=== PATIENT | male | born 1955 | race Caucasian/White ===

== ENCOUNTER 2017-05-07 14:51 | Inpatient (IN) | payer BC ==
[~2017-05-07] VITALS: Ht 170.2 cm; Wt 171.5 kg
[~2017-05-07 14:51] MED LIST: FUROPOW8 XX; HYDR-1421 PO; KCL PO; LOSA100T27 PO; SIMVPOW2 PO; TRIA25CA OR
[2017-05-07 16:54] LABS: Alanine Aminotransferase 19 U/L (16-61); Albumin 3.7 g/dL (3.4-5.0); Alkaline Phosphatase 73 U/L (45-117); Anion Gap 5 (5-15); Aspartate Aminotransferase 14 U/L (15-37); Bilirubin, Total 0.4 mg/dL (0.2-1.0); Blood Urea Nitrogen 13 mg/dL (7-18); Calcium 8.6 mg/dL (8.5-10.1); Carbon Dioxide 28 mmol/L (21-32); Chloride 104 mmol/L (98-107); GFR African American 125 mL/min; GFR Non-African American 103 mL/min; Glucose 100 mg/dL (74-106); Magnesium 2.5 mg/dL (1.6-2.6); Potassium 4.2 mmol/L (3.5-5.1); Sodium 137 mmol/L (136-145); Total Protein 7.5 g/dL (6.4-8.2)
[2017-05-07 16:59] LABS: Basophils # (auto) 0 uL; Basophils % (auto) 0.5 % (0.0-2.0); Eosinophils # (auto) 0.2 uL; Eosinophils % (auto) 1.9 % (0.0-7.0); Hemoglobin 12.3 g/dL (13.5-17.5); Lymphocytes # (auto) 2.1 uL; Lymphocytes % (auto) 26.6 % (10.0-50.0); Mean Corpuscular Hemoglobin 31.3 pg (28.0-32.0); Mean Corpuscular Hgb Conc. 33.3 g/dL (32.0-36.0); Mean Corpuscular Volume 94.2 fL (80.0-100.0); Monocytes # (auto) 0.7 uL; Monocytes % (auto) 8.7 % (0.0-12.0); Neutrophils # (auto) 4.9 uL; Neutrophils % (auto) 62.3 % (37.0-80.0); Nucleated Red Blood Cells % 0.1 %; Platelet Count (auto) 219 10^3/uL (140-450); Red Blood Cells 3.93 10^6/uL (4.5-5.90); Red Cell Distribution Width 13.4 % (11.8-14.3); White Blood Cell 7.9 10^3/uL (4.4-10.8)
[2017-05-08] MEDS ORDERED: IOHEXOL 350 MG/ML 100ML IJ ONE (04:13)
[2017-05-08] MEDS ORDERED: HYDROcodone-ACET 10/325MG TAB PO ONE (04:15)
[2017-05-08] MEDS ORDERED: ASPirin 81 mg TAB PO ONE (05:15)
[2017-05-08] MEDS ORDERED: AGG25C PO (05:43)
[2017-05-08] MEDS ORDERED: HYDR-4683 PO (05:43)
[2017-05-08] MEDS ORDERED: AMLO5TAB2 PO (05:43)
[2017-05-08] MEDS ORDERED: TAMS0.4C36 PO (05:50)
[2017-05-08] MEDS ORDERED: FURO40TA4 PO (05:50)
[2017-05-08] MEDS ORDERED: METO-169 PO (05:50)
[2017-05-08] MEDS ORDERED: LOSA100T27 PO (05:50)
[2017-05-08] MEDS ORDERED: DICL1GEL26 TD (05:50)
[2017-05-08] MEDS ORDERED: FLUT250M2 INH (05:50)
[2017-05-08] MEDS ORDERED: RANI300C7 PO (05:50)
[2017-05-08] MEDS ORDERED: ATOR20TA50 PO (05:50)
[2017-05-08] MEDS ORDERED: HYDR12.56 PO (05:50)
[2017-05-08] MEDS ORDERED: POTA10TA51 PO (05:50)
[2017-05-08] MEDS ORDERED: TEMAZEPAM 15 MG CAP PO PRN (06:15)
[2017-05-08] MEDS ORDERED: ACETAMINOPHEN 325 MG TAB PO PRN (06:15)
[2017-05-08] MEDS ORDERED: ONDANSETRON HCL 4 MG/2 ML VIAL IV PRN (06:15)
[2017-05-08] MEDS ORDERED: MORPHINE SULFATE 4 MG/ML SYR/VIAL IV PRN (06:15)
[2017-05-08] MEDS ORDERED: NITROGLYCERIN 0.4 MG SL TAB SL PRN (06:15)
[2017-05-08] MEDS ORDERED: ALBUTEROL SULF 2.5 MG/0.5ML(0.5%) NEB SOLN NEB PRN (06:15)
[2017-05-08 08:00] VITALS: BP 121/57
[2017-05-08] MEDS: FAMOTIDINE 20 MG TAB PO SCH ×2 (09:13→22:11)
[2017-05-08] MEDS: LOSARTAN POTASSIUM 50 MG TAB PO SCH (09:16)
[2017-05-08] MEDS: amLODIPine BESYLATE 5 MG TAB PO SCH (09:21)
[2017-05-08] MEDS ORDERED: OPTISON 3ml Vial for INJ IV ONE (09:49)
[2017-05-08] MEDS ORDERED: ENOXAPARIN SOD 40 MG/0.4 ML SYRINGE SC SCH (10:00)
[2017-05-08] MEDS ORDERED: FUROSEMIDE 40 MG TAB PO SCH (10:00)
[2017-05-08] MEDS ORDERED: LOSARTAN POTASSIUM 25 MG TAB PO SCH (10:00)
[2017-05-08] MEDS ORDERED: HCTZ 25 MG TAB PO SCH (10:00)
[2017-05-08] MEDS ORDERED: POTASSIUM CHL 20 Meq TABLET PO ONE ×2 (11:15→17:00)
[2017-05-08] MEDS ORDERED: FUROSEMIDE 40 MG/4 ML VIAL IV ONE (11:15)
[2017-05-08] MEDS ORDERED: ASPIRIN-DIPYRIDAMOLE (25/200MG) CAPSULE PO ONE (11:45)
[2017-05-08 12:00] VITALS: BP 144/73
[2017-05-08] MEDS: HYDROcodone-ACET 5/325MG TAB PO PRN ×2 (12:07→21:13)
[2017-05-08 16:52] VITALS: BP 132/61
[2017-05-08] MEDS: TAMSULOSIN HYDROCHLORIDE 0.4 MG CAP PO SCH (17:14)
[2017-05-08 19:12] LABS: Urine Bacteria NONE SEEN /hpf (None Seen); Urine Blood Negative /uL (Negative); Urine Specific Gravity 1.011 (1.001-1.035); Urine WBC <1 /hpf (0 - 3)
[2017-05-08 21:46] VITALS: BP 122/55
[2017-05-08] MEDS: ASPIRIN-DIPYRIDAMOLE (25/200MG) CAPSULE PO SCH (22:11)
[2017-05-08] MEDS: ATORVASTATIN 20 MG TAB PO SCH (22:11)
[2017-05-09] MEDS: HYDROcodone-ACET 5/325MG TAB PO PRN ×5 (04:19→23:50)
[2017-05-09 04:57] VITALS: BP 145/97
[2017-05-09 07:25] LABS: Basophils # (auto) 0 uL; Basophils % (auto) 0.4 % (0.0-2.0); Eosinophils # (auto) 0.1 uL; Eosinophils % (auto) 1.2 % (0.0-7.0); Hematocrit 36.5 % (41.0-53.0); Hemoglobin 12.4 g/dL (13.5-17.5); Lymphocytes % (auto) 21.6 % (10.0-50.0); Mean Corpuscular Hgb Conc. 34.1 g/dL (32.0-36.0); Mean Corpuscular Volume 93.8 fL (80.0-100.0); Monocytes % (auto) 11.1 % (0.0-12.0); Neutrophils # (auto) 6.2 uL; Neutrophils % (auto) 65.7 % (37.0-80.0); Platelet Count (auto) 216 10^3/uL (140-450); Red Blood Cells 3.89 10^6/uL (4.5-5.90); White Blood Cell 9.4 10^3/uL (4.4-10.8)
[2017-05-09 07:46] LABS: Albumin 3.6 g/dL (3.4-5.0); Bilirubin, Total 0.5 mg/dL (0.2-1.0); Calcium 8.9 mg/dL (8.5-10.1); Potassium 4.3 mmol/L (3.5-5.1); Total Protein 7.1 g/dL (6.4-8.2)
[2017-05-09 09:00] VITALS: BP 122/63
[2017-05-09] MEDS: FUROSEMIDE 40 MG/4 ML VIAL IV SCH (09:25)
[2017-05-09] MEDS: ASPIRIN-DIPYRIDAMOLE (25/200MG) CAPSULE PO SCH ×2 (09:25→21:35)
[2017-05-09] MEDS: FAMOTIDINE 20 MG TAB PO SCH ×2 (09:26→21:36)
[2017-05-09] MEDS: LOSARTAN POTASSIUM 50 MG TAB PO SCH (09:26)
[2017-05-09] MEDS: amLODIPine BESYLATE 5 MG TAB PO SCH (09:26)
[2017-05-09] MEDS: POTASSIUM CHL 20 Meq TABLET PO SCH (09:26)
[2017-05-09 13:00] VITALS: BP 91/38
[2017-05-09] MEDS ORDERED: POTASSIUM CHL 20 Meq TABLET PO ONE ×2 (14:25→14:30)
[2017-05-09 16:32] VITALS: BP 106/58
[2017-05-09] MEDS: TAMSULOSIN HYDROCHLORIDE 0.4 MG CAP PO SCH (17:35)
[2017-05-09] MEDS: ATORVASTATIN 20 MG TAB PO SCH (21:35)
[2017-05-09 22:00] VITALS: BP 127/62
[2017-05-10 05:00] VITALS: BP 119/67
[2017-05-10] MEDS: HYDROcodone-ACET 5/325MG TAB PO PRN ×2 (07:48→13:23)
[2017-05-10 09:00] VITALS: BP 124/64
[2017-05-10] MEDS: LOSARTAN POTASSIUM 50 MG TAB PO SCH (10:02)
[2017-05-10] MEDS: FAMOTIDINE 20 MG TAB PO SCH (10:02)
[2017-05-10] MEDS: FUROSEMIDE 40 MG/4 ML VIAL IV SCH (10:02)
[2017-05-10] MEDS: POTASSIUM CHL 20 Meq TABLET PO SCH (10:02)
[2017-05-10] MEDS: ASPIRIN-DIPYRIDAMOLE (25/200MG) CAPSULE PO SCH (10:37)
[2017-05-10 12:27] VITALS: BP 111/55
== END 2017-05-10 15:22 | disposition home or self-care (01) | DRG 190 ==
LOC: ER 14:51 → TELE 14:52 → TELE-EAST 05-08 07:47 → EAST 05-10 00:21
PROVIDERS: ADMIT Nurse Practitioner; ATTEND Internal Medicine
DX: J44.1 Chronic obstructive pulmonary disease with (acute) exacerbation (principal); I50.33 Acute on chronic diastolic (congestive) heart failure; Z68.43 Body mass index [BMI] 50.0-59.9, adult; Z82.49 Family history of ischemic heart disease and other diseases of the circulatory system; E66.01 Morbid (severe) obesity due to excess calories; I11.0 Hypertensive heart disease with heart failure; R00.1 Bradycardia, unspecified; E78.5 Hyperlipidemia, unspecified; R79.1 Abnormal coagulation profile; G47.00 Insomnia, unspecified; Z83.3 Family history of diabetes mellitus; Z86.73 Personal history of transient ischemic attack (TIA), and cerebral infarction without residual deficits; Z98.84 Bariatric surgery status; Z90.49 Acquired absence of other specified parts of digestive tract; Z80.8 Family history of malignant neoplasm of other organs or systems; Z79.899 Other long term (current) drug therapy
CPT/HCPCS: 36415; 71046; 71275; 74176; 80053; 81001; 83735; 83880; 84484; 85025; 85379; 93005; 93306; 93970; 94640; Q9956

== ENCOUNTER 2023-03-16 23:38 | Inpatient (IN) | payer BC, MEDICARE ==
[~2023-03-16] VITALS: Ht 170.2 cm; Wt 139.8 kg
[~2023-03-16 23:38] MED LIST changes: +AGG25C PO; +AMLO1TAB22 PO; +ATOR20TA50 PO; +DICL1GEL26 TD; +FLUT250M2 INH; +FURO40TA4 PO; -FUROPOW8 XX; -HYDR-1421 PO; +HYDR-4833 PO; +HYDR12.59 PO; -KCL PO; -LOSA100T27 PO; +LOSA100T58 PO; +METO-289 PO; +POTA10TA51 PO; +RANI300C7 PO; -SIMVPOW2 PO; +TAMS0.4C36 PO; -TRIA25CA OR
[2023-03-17 00:52] LABS: Basophils # (auto) 0 10 ^3/uL (0-0.2); Basophils % (auto) 0.4 % (0.0-2.0); Eosinophils # (auto) 0 10 ^3/uL (0-0.8); Hematocrit 32.4 % (41.0-53.0); Hemoglobin 10.9 g/dL (13.5-17.5); Lymphocytes # (auto) 0.7 10 ^3/uL (0.4-5.4); Mean Corpuscular Hemoglobin 32.6 pg (28.0-32.0); Mean Corpuscular Hgb Conc. 33.8 g/dL (32.0-36.0); Mean Corpuscular Volume 96.7 fL (80.0-100.0); Monocytes # (auto) 0.5 10 ^3/uL (0-1.3); Monocytes % (auto) 10.8 % (0.0-12.0); Neutrophils # (auto) 3.3 10 ^3/uL (1.6-8.6); Neutrophils % (auto) 72.8 % (37.0-80.0); Red Blood Cells 3.35 10^6/uL (4.5-5.90); Red Cell Distribution Width 13.5 % (11.8-14.3); White Blood Cell 4.6 10^3/uL (4.4-10.8)
[2023-03-17 01:05] LABS: Chloride 106 mmol/L (98-107); Potassium 4.2 mmol/L (3.5-5.1); Sodium 138 mmol/L (136-145)
[2023-03-17 01:06] LABS: Anion Gap 6 (5-15); Calcium 8.8 mg/dL (8.7-10.4); Carbon Dioxide 26 mmol/L (20-30)
[2023-03-17 01:11] LABS: BUN/Creatinine Ratio 16.2 (10.0-20.0); Blood Urea Nitrogen 17 mg/dL (9-23); Glucose 110 mg/dL (74-106)
[2023-03-17 02:00] VITALS: PULSE 84; RESP 18; O2SAT 99
[2023-03-17] MEDS ORDERED: FUROSEMIDE 40 MG/4 ML VIAL IV ONE (02:00)
[2023-03-17] MEDS ORDERED: OXYCODONE W/ ACETAMINOPHEN 5/325MG TABLET PO ONE (02:15)
[2023-03-17 03:34] LABS: Urine Epithelial Cast None Seen /hpf (<5)
[2023-03-17 03:45] LABS: Urine Bacteria FEW /hpf (None Seen); Urine Blood Negative /uL (Negative); Urine Clarity Clear (Clear); Urine Color Colorless (Yellow); Urine Protein, UAD Negative (Negative); Urine Specific Gravity 1.006 (1.001-1.035); Urine Urobilinogen Normal (Negative); Urine WBC 1 /hpf (0 - 3)
[2023-03-17] MEDS ORDERED: ALBUTEROL SULF 2.5 MG/0.5ML(0.5%) NEB SOLN NEB ONE (08:30)
[2023-03-17] MEDS ORDERED: IPRATROPIUM BROM 0.5 MG/2.5ML INH SOL NEB ONE (08:30)
[2023-03-17 08:41] VITALS: O2SAT 98
[2023-03-17 08:42] VITALS: PULSE 93; RESP 16; O2SAT 98
[2023-03-17 08:44] VITALS: PULSE 106; RESP 18; O2SAT 98
[2023-03-17 09:00] VITALS: PULSE 84; RESP 18; O2SAT 94
[2023-03-17] MEDS ORDERED: PANTOPRAZOLE 40 MG TAB PO ONE (09:15)
[2023-03-17] MEDS: PANTOPRAZOLE 40 MG TAB PO SCH (10:00)
[2023-03-17] MEDS ORDERED: PATIENTS OWN MEDICATION (Losartan Potassium 100 MG) PO SCH (10:00)
[2023-03-17] MEDS: FUROSEMIDE 20 MG/2 ML VIAL IV SCH ×2 (10:17→22:47)
[2023-03-17] MEDS: amLODIPine BESYLATE 5 MG TAB PO SCH (10:18)
[2023-03-17] MEDS: ASPIRIN-DIPYRIDAMOLE (25/200MG) CAPSULE PO SCH (10:18)
[2023-03-17] MEDS: LOSARTAN POTASSIUM 50 MG TAB PO SCH (10:18)
[2023-03-17] MEDS: ATORVASTATIN 20 MG TAB PO SCH (10:18)
[2023-03-17] MEDS: TAMSULOSIN HYDROCHLORIDE 0.4 MG CAP PO SCH (10:19)
[2023-03-17] MEDS: METOPROLOL SUCCINATE XL 50 MG TAB PO SCH (10:19)
[2023-03-17] MEDS ORDERED: HYDROcodone-ACET 7.5/325MG TAB ONE (10:22)
[2023-03-17] MEDS: HYDROcodone-ACET 7.5/325MG TAB PO PRN (10:23)
[2023-03-17] MEDS ORDERED: OPTISON 3ml Vial for INJ IV ONE (10:45)
[2023-03-17 12:01] LABS: Rapid Influenza B Negative (Negative)
[2023-03-17 12:05] LABS: COVID19 ANTIGEN SOFIA FIA NEGATIVE (NEGATIVE); Rapid Influenza A Positive (Negative)
[2023-03-17 13:28] LABS: INR 1.11 (0.9-1.15); Prothrombin Time 11.6 sec (9.3-11.8)
[2023-03-17] MEDS: AMIODARONE HCL 200 MG TAB PO ONE ×2 (13:45→16:00)
[2023-03-17 16:58] LABS: Triglycerides 56 mg/dL (< 150)
[2023-03-17 16:59] LABS: LDL Cholesterol 54 mg/dL (< 100)
[2023-03-17 17:00] LABS: Cholesterol 155 mg/dL (< 200); HDL Cholesterol 77 mg/dL (40-59)
[2023-03-17] MEDS: AMIODARONE HCL 200 MG TAB PO SCH (22:47)
[2023-03-17] MEDS: OSELTAMIVIR 75 MG CAP PO SCH (22:47)
[2023-03-17] MEDS: ENOXAPARIN SOD 100 MG/1 ML SYRINGE SC SCH (22:56)
[2023-03-17 23:41] VITALS: PULSE 64; RESP 16; O2SAT 97
[2023-03-18] MEDS: HYDROcodone-ACET 7.5/325MG TAB PO PRN ×3 (00:44→19:37)
[2023-03-18 04:54] LABS: Basophils # (auto) 0 10 ^3/uL (0-0.2); Basophils % (auto) 0.3 % (0.0-2.0); Eosinophils # (auto) 0 10 ^3/uL (0-0.8); Eosinophils % (auto) 0.4 % (0.0-7.0); Hematocrit 32.1 % (41.0-53.0); Hemoglobin 10.7 g/dL (13.5-17.5); Lymphocytes # (auto) 1.2 10 ^3/uL (0.4-5.4); Lymphocytes % (auto) 18.8 % (10.0-50.0); Mean Corpuscular Hgb Conc. 33.3 g/dL (32.0-36.0); Monocytes # (auto) 0.7 10 ^3/uL (0-1.3); Monocytes % (auto) 10.1 % (0.0-12.0); Neutrophils # (auto) 4.6 10 ^3/uL (1.6-8.6); Neutrophils % (auto) 70.4 % (37.0-80.0); Nucleated Red Blood Cells % 0.1 %; Red Blood Cells 3.35 10^6/uL (4.5-5.90); Red Cell Distribution Width 13.6 % (11.8-14.3); White Blood Cell 6.5 10^3/uL (4.4-10.8)
[2023-03-18 05:01] LABS: Chloride 104 mmol/L (98-107); Potassium 3.6 mmol/L (3.5-5.1); Sodium 138 mmol/L (136-145)
[2023-03-18 05:02] LABS: Anion Gap 6 (5-15); Carbon Dioxide 28 mmol/L (20-30)
[2023-03-18 05:03] LABS: Calcium 8.9 mg/dL (8.7-10.4)
[2023-03-18 05:06] LABS: Alkaline Phosphatase 77 U/L (46-116)
[2023-03-18 05:07] LABS: BUN/Creatinine Ratio 19.2 (10.0-20.0); Blood Urea Nitrogen 15 mg/dL (9-23); Glucose 98 mg/dL (74-106)
[2023-03-18 05:09] LABS: Albumin 3.9 g/dL (3.2-4.8); Aspartate Aminotransferase 27 U/L (13-40)
[2023-03-18 05:10] LABS: Total Protein 6.7 g/dL (5.7-8.2)
[2023-03-18 05:46] LABS: Alanine Aminotransferase 25 U/L (7-40)
[2023-03-18 09:20] VITALS: RESP 22
[2023-03-18] MEDS: ENOXAPARIN SOD 100 MG/1 ML SYRINGE SC SCH (10:00)
[2023-03-18] MEDS ORDERED: ENOXAPARIN SOD 40 MG/0.4 ML SYRINGE SC SCH (10:00)
[2023-03-18] MEDS: ASPIRIN-DIPYRIDAMOLE (25/200MG) CAPSULE PO SCH (10:00)
[2023-03-18] MEDS: PANTOPRAZOLE 40 MG TAB PO SCH (10:00)
[2023-03-18] MEDS: FUROSEMIDE 20 MG/2 ML VIAL IV SCH ×2 (10:26→22:11)
[2023-03-18] MEDS: METOPROLOL SUCCINATE XL 50 MG TAB PO SCH (10:27)
[2023-03-18] MEDS: ATORVASTATIN 20 MG TAB PO SCH (10:27)
[2023-03-18] MEDS: amLODIPine BESYLATE 5 MG TAB PO SCH (10:28)
[2023-03-18] MEDS: AMIODARONE HCL 200 MG TAB PO SCH ×2 (10:28→22:12)
[2023-03-18] MEDS: LOSARTAN POTASSIUM 50 MG TAB PO SCH (10:28)
[2023-03-18] MEDS: OSELTAMIVIR 75 MG CAP PO SCH ×2 (10:29→22:12)
[2023-03-18] MEDS: TAMSULOSIN HYDROCHLORIDE 0.4 MG CAP PO SCH (10:29)
[2023-03-18] MEDS ORDERED: POTA-180 PO (11:19)
[2023-03-18] MEDS ORDERED: MELO-335 PO (11:23)
[2023-03-18] MEDS ORDERED: OXYC325T14 PO (11:23)
[2023-03-18] MEDS ORDERED: GABA-1250 PO (11:23)
[2023-03-18 23:46] VITALS: PULSE 98
[2023-03-19] VITALS (8 sets, daily range): BP systolic 116–131; BP diastolic 68–79; PULSE 61–88; RESP 18–21; TEMP 98–98.6; O2SAT 91–96
[2023-03-19] MEDS: HYDROcodone-ACET 7.5/325MG TAB PO PRN ×2 (00:02→20:21)
[2023-03-19 05:52] LABS: Basophils # (auto) 0 10 ^3/uL (0-0.2); Basophils % (auto) 0.2 % (0.0-2.0); Chloride 102 mmol/L (98-107); Eosinophils # (auto) 0 10 ^3/uL (0-0.8); Eosinophils % (auto) 0.8 % (0.0-7.0); Hematocrit 30.7 % (41.0-53.0); Hemoglobin 10.3 g/dL (13.5-17.5); Lymphocytes # (auto) 1.4 10 ^3/uL (0.4-5.4); Lymphocytes % (auto) 22.4 % (10.0-50.0); Mean Corpuscular Hemoglobin 32.2 pg (28.0-32.0); Mean Corpuscular Hgb Conc. 33.6 g/dL (32.0-36.0); Mean Corpuscular Volume 95.8 fL (80.0-100.0); Monocytes # (auto) 0.7 10 ^3/uL (0-1.3); Neutrophils % (auto) 65.6 % (37.0-80.0); Potassium 3.4 mmol/L (3.5-5.1); Red Cell Distribution Width 13.2 % (11.8-14.3); Sodium 138 mmol/L (136-145); White Blood Cell 6.1 10^3/uL (4.4-10.8)
[2023-03-19 05:53] LABS: Anion Gap 6 (5-15); Calcium 8.8 mg/dL (8.7-10.4); Carbon Dioxide 30 mmol/L (20-30)
[2023-03-19 05:58] LABS: BUN/Creatinine Ratio 18.6 (10.0-20.0); Blood Urea Nitrogen 16 mg/dL (9-23); Glucose 95 mg/dL (74-106)
[2023-03-19 05:59] LABS: Magnesium 1.7 mg/dL (1.6-2.6)
[2023-03-19] MEDS: amLODIPine BESYLATE 5 MG TAB PO SCH (08:41)
[2023-03-19] MEDS: LOSARTAN POTASSIUM 50 MG TAB PO SCH (08:41)
[2023-03-19] MEDS: OSELTAMIVIR 75 MG CAP PO SCH ×2 (08:41→21:58)
[2023-03-19] MEDS: TAMSULOSIN HYDROCHLORIDE 0.4 MG CAP PO SCH (08:42)
[2023-03-19] MEDS: PANTOPRAZOLE 40 MG TAB PO SCH (08:42)
[2023-03-19] MEDS: AMIODARONE HCL 200 MG TAB PO SCH ×2 (08:42→21:58)
[2023-03-19] MEDS: ATORVASTATIN 20 MG TAB PO SCH (08:42)
[2023-03-19] MEDS: METOPROLOL SUCCINATE XL 50 MG TAB PO SCH (08:43)
[2023-03-19] MEDS: FUROSEMIDE 20 MG/2 ML VIAL IV SCH ×2 (08:43→22:03)
[2023-03-19] MEDS: ASPIRIN-DIPYRIDAMOLE (25/200MG) CAPSULE PO SCH (09:14)
[2023-03-19] MEDS ORDERED: INFLUENZA QUAD 2023-2024 0.5 ML SYRG IM ONE (10:00)
[2023-03-19] MEDS ORDERED: POTASSIUM EFFERVESENT TAB 25 MEQ PO ONE (12:00)
[2023-03-19] MEDS: DOXYCYCLINE 100 MG TAB/CAP PO SCH ×2 (13:01→21:58)
[2023-03-19] MEDS: SALINE 0.65 % NASAL SPRAY 45ML BOTTLE EACHNOSTRI SCH ×3 (13:01→21:57)
[2023-03-19] MEDS: APIXABAN 5 MG TAB PO SCH (21:58)
[2023-03-20] MEDS: HYDROcodone-ACET 7.5/325MG TAB PO PRN (03:37)
[2023-03-20 05:00] VITALS: BP 136/76; PULSE 80; RESP 20; TEMP 98; O2SAT 94
[2023-03-20 05:33] LABS: Basophils # (auto) 0 10 ^3/uL (0-0.2); Basophils % (auto) 0.2 % (0.0-2.0); Eosinophils # (auto) 0.1 10 ^3/uL (0-0.8); Eosinophils % (auto) 0.8 % (0.0-7.0); Hematocrit 36.4 % (41.0-53.0); Hemoglobin 12.4 g/dL (13.5-17.5); Lymphocytes # (auto) 1.7 10 ^3/uL (0.4-5.4); Lymphocytes % (auto) 25.8 % (10.0-50.0); Mean Corpuscular Hemoglobin 32.3 pg (28.0-32.0); Monocytes # (auto) 0.6 10 ^3/uL (0-1.3); Monocytes % (auto) 8.7 % (0.0-12.0); Neutrophils # (auto) 4.3 10 ^3/uL (1.6-8.6); Neutrophils % (auto) 64.5 % (37.0-80.0); Nucleated Red Blood Cells % 0.1 %; Red Blood Cells 3.83 10^6/uL (4.5-5.90); Red Cell Distribution Width 13.2 % (11.8-14.3); White Blood Cell 6.7 10^3/uL (4.4-10.8)
[2023-03-20] MEDS: SALINE 0.65 % NASAL SPRAY 45ML BOTTLE EACHNOSTRI SCH ×2 (05:35→12:00)
[2023-03-20 05:36] LABS: Chloride 102 mmol/L (98-107); Potassium 4.3 mmol/L (3.5-5.1); Sodium 138 mmol/L (136-145)
[2023-03-20 05:37] LABS: Anion Gap 6 (5-15); Carbon Dioxide 30 mmol/L (20-30)
[2023-03-20 05:42] LABS: BUN/Creatinine Ratio 19.8 (10.0-20.0); Blood Urea Nitrogen 19 mg/dL (9-23); Glucose 101 mg/dL (74-106)
[2023-03-20 08:00] VITALS: PULSE 58; PULSE 61; RESP 21; O2SAT 94
[2023-03-20 09:00] VITALS: BP 137/69; PULSE 61; RESP 21; TEMP 98; O2SAT 94
[2023-03-20] MEDS: TAMSULOSIN HYDROCHLORIDE 0.4 MG CAP PO SCH (10:26)
[2023-03-20] MEDS: FUROSEMIDE 20 MG/2 ML VIAL IV SCH (10:26)
[2023-03-20] MEDS: ATORVASTATIN 20 MG TAB PO SCH (10:27)
[2023-03-20] MEDS: AMIODARONE HCL 200 MG TAB PO SCH (10:27)
[2023-03-20] MEDS: OSELTAMIVIR 75 MG CAP PO SCH (10:27)
[2023-03-20] MEDS: DOXYCYCLINE 100 MG TAB/CAP PO SCH (10:27)
[2023-03-20] MEDS: METOPROLOL SUCCINATE XL 50 MG TAB PO SCH (10:27)
[2023-03-20] MEDS: APIXABAN 5 MG TAB PO SCH (10:27)
[2023-03-20] MEDS: PANTOPRAZOLE 40 MG TAB PO SCH (10:27)
[2023-03-20] MEDS: LOSARTAN POTASSIUM 50 MG TAB PO SCH (10:28)
[2023-03-20] MEDS: amLODIPine BESYLATE 5 MG TAB PO SCH (10:28)
[2023-03-20] MEDS ORDERED: APIX5TAB PO (11:46)
[2023-03-20] MEDS ORDERED: TAMIFLU PO (11:46)
[2023-03-20 13:00] VITALS: BP 130/83; PULSE 73; RESP 19; TEMP 98.1; O2SAT 93
[2023-03-20 13:40] VITALS: BP 137/69; PULSE 61; RESP 21; TEMP 36.7; O2SAT 94
== END 2023-03-20 15:15 | disposition home or self-care (01) | DRG 193 ==
LOC: ER 23:38 → TELE 03-17 09:18 → TELE-EAST 03-18 23:25
PROVIDERS: ADMIT Nurse Practitioner Family; ATTEND Nurse Practitioner Acute Care
DX: J10.1 Influenza due to other identified influenza virus with other respiratory manifestations (principal); I50.43 Acute on chronic combined systolic (congestive) and diastolic (congestive) heart failure; J96.01 Acute respiratory failure with hypoxia; Z68.42 Body mass index [BMI] 45.0-49.9, adult; I11.0 Hypertensive heart disease with heart failure; D64.9 Anemia, unspecified; E66.01 Morbid (severe) obesity due to excess calories; E78.5 Hyperlipidemia, unspecified; Z20.822 Contact with and (suspected) exposure to COVID-19; I48.91 Unspecified atrial fibrillation; Z98.84 Bariatric surgery status; Z86.73 Personal history of transient ischemic attack (TIA), and cerebral infarction without residual deficits; Z90.49 Acquired absence of other specified parts of digestive tract; Z74.01 Bed confinement status; Z82.49 Family history of ischemic heart disease and other diseases of the circulatory system; Z83.3 Family history of diabetes mellitus; Z79.01 Long term (current) use of anticoagulants; Z91.148 Patient's other noncompliance with medication regimen for other reason; Z79.899 Other long term (current) drug therapy
CPT/HCPCS: 36415; 71045; 80048; 80053; 80061; 81001; 83036; 83735; 83880; 84443; 84484; 85025; 85610; 87426; 87804; 93005; 93306; 93970; 94640; 99291; G0378; Q9956

== ENCOUNTER 2023-09-21 14:54 | Inpatient (IN) | payer MEDICARE ==
[~2023-09-21] VITALS: Ht 167.6 cm; Wt 128.0 kg
[~2023-09-21 14:54] MED LIST changes: -AGG25C PO; +APIX5TAB PO; -DICL1GEL26 TD; -FLUT250M2 INH; +GABA-1250 PO; -HYDR-4833 PO; +LOSA-535 PO; -LOSA100T58 PO; +MELO15TA29 PO; +OXYC325T14 PO; +POTA-180 PO; -POTA10TA51 PO; -RANI300C7 PO; +TAMIFLU PO
[2023-09-21 15:46] LABS: Basophils # (auto) 0.1 10 ^3/uL (0-0.2); Basophils % (auto) 0.6 % (0.0-2.0); Eosinophils # (auto) 0 10 ^3/uL (0-0.8); Eosinophils % (auto) 0.1 % (0.0-7.0); Hematocrit 33.6 % (41.0-53.0); Hemoglobin 11.4 g/dL (13.5-17.5); Lymphocytes # (auto) 1.1 10 ^3/uL (0.4-5.4); Mean Corpuscular Hemoglobin 32.5 pg (28.0-32.0); Mean Corpuscular Hgb Conc. 33.9 g/dL (32.0-36.0); Mean Corpuscular Volume 95.6 fL (80.0-100.0); Monocytes # (auto) 1.1 10 ^3/uL (0-1.3); Monocytes % (auto) 7.5 % (0.0-12.0); Neutrophils # (auto) 12.8 10 ^3/uL (1.6-8.6); Neutrophils % (auto) 84.8 % (37.0-80.0); Red Blood Cells 3.52 10^6/uL (4.5-5.90); Red Cell Distribution Width 14.3 % (11.8-14.3); White Blood Cell 15.1 10^3/uL (4.4-10.8)
[2023-09-21 15:48] LABS: Chloride 104 mmol/L (98-107); Sodium 137 mmol/L (136-145)
[2023-09-21 15:49] LABS: Anion Gap 8 (5-15); Calcium 9.5 mg/dL (8.7-10.4); Carbon Dioxide 25 mmol/L (20-30)
[2023-09-21 15:54] LABS: Blood Urea Nitrogen 14 mg/dL (9-23); Glucose 110 mg/dL (74-106)
[2023-09-21 15:56] LABS: BUN/Creatinine Ratio 16.9 (10.0-20.0)
[2023-09-21] MEDS: PIPERACILLIN-TAZOB 3.375GM 100 ML IV ONE (16:34)
[2023-09-21 17:02] VITALS: PULSE 81; RESP 16; O2SAT 97
[2023-09-21] MEDS ORDERED: MORPHINE SULFATE INJ 2 MG/ml SYRG IV PRN ×3 (17:45→18:15)
[2023-09-21] MEDS ORDERED: NITROGLYCERIN 0.4 MG SL TAB SL PRN ×2 (17:45→18:00)
[2023-09-21] MEDS ORDERED: FUROSEMIDE 40 MG TAB PO SCH ×2 (17:45→18:00)
[2023-09-21] MEDS ORDERED: DOCUSATE SOD 100 MG CAP PO PRN ×3 (17:45→18:15)
[2023-09-21] MEDS ORDERED: ONDANSETRON HCL 4 MG/2 ML VIAL IV PRN ×3 (17:45→18:15)
[2023-09-21] MEDS ORDERED: PIPERACILLIN-TAZOB 3.375GM 100 ML IV ONE (18:15)
[2023-09-21] MEDS: TAMSULOSIN HYDROCHLORIDE 0.4 MG CAP PO SCH (18:52)
[2023-09-21] MEDS: PIPERACILLIN-TAZOB 3.375GM 100 ML IV SCH (21:14)
[2023-09-21] MEDS: GABAPENTIN 300 MG CAP PO SCH (21:15)
[2023-09-21] MEDS: APIXABAN 5 MG TAB PO SCH (21:15)
[2023-09-21 21:36] VITALS: PULSE 86; RESP 20; O2SAT 97
[2023-09-21] MEDS ORDERED: GABAPENTIN 300 MG CAP PO SCH (22:00)
[2023-09-21] MEDS ORDERED: APIXABAN 5 MG TAB PO SCH (22:00)
[2023-09-21] MEDS: HYDROcodone-ACET 10/325MG TAB PO ONE (22:12)
[2023-09-22] VITALS (8 sets, daily range): BP systolic 113–130; BP diastolic 64–72; PULSE 69–96; RESP 16–20; TEMP 97.5–98.6; O2SAT 93–99
[2023-09-22] MEDS ORDERED: FERR325T20 PO (00:36)
[2023-09-22] MEDS ORDERED: HYDR12.55 PO (00:36)
[2023-09-22] MEDS ORDERED: METO25TA93 PO (00:36)
[2023-09-22] MEDS ORDERED: ASPI1CAP8 PO (00:40)
[2023-09-22 02:32] LABS: Urine Bacteria None Seen /hpf (None Seen)
[2023-09-22 02:48] LABS: Urine Blood 1+ /uL (Negative); Urine Clarity Clear (Clear); Urine Color Light-Yellow (Yellow); Urine Protein, UAD Negative (Negative); Urine Specific Gravity 1.018 (1.001-1.035); Urine Urobilinogen Normal (Negative); Urine WBC 66 /hpf (0 - 3); Urine WBC Clumps PRESENT /hpf (None Seen)
[2023-09-22] MEDS: HYDROcodone-ACET 7.5/325MG TAB PO ONE (05:57)
[2023-09-22 06:47] LABS: Basophils # (auto) 0 10 ^3/uL (0-0.2); Basophils % (auto) 0.2 % (0.0-2.0); Eosinophils # (auto) 0 10 ^3/uL (0-0.8); Eosinophils % (auto) 0.3 % (0.0-7.0); Hematocrit 30.1 % (41.0-53.0); Hemoglobin 10.4 g/dL (13.5-17.5); Lymphocytes # (auto) 1.3 10 ^3/uL (0.4-5.4); Lymphocytes % (auto) 11.6 % (10.0-50.0); Mean Corpuscular Hemoglobin 33.2 pg (28.0-32.0); Mean Corpuscular Hgb Conc. 34.5 g/dL (32.0-36.0); Mean Corpuscular Volume 96.2 fL (80.0-100.0); Monocytes % (auto) 8.6 % (0.0-12.0); Neutrophils % (auto) 79.3 % (37.0-80.0); Red Blood Cells 3.13 10^6/uL (4.5-5.90); Red Cell Distribution Width 14.1 % (11.8-14.3); White Blood Cell 11.3 10^3/uL (4.4-10.8)
[2023-09-22 07:00] LABS: Alanine Aminotransferase 31 U/L (7-40); Albumin 3.7 g/dL (3.2-4.8); Alkaline Phosphatase 83 U/L (46-116); Anion Gap 9 (5-15); Aspartate Aminotransferase 25 U/L (13-40); BUN/Creatinine Ratio 12.5 (10.0-20.0); Blood Urea Nitrogen 10 mg/dL (9-23); Carbon Dioxide 25 mmol/L (20-30); Chloride 103 mmol/L (98-107); Glucose 105 mg/dL (74-106); Potassium 3.9 mmol/L (3.5-5.1); Sodium 137 mmol/L (136-145)
[2023-09-22 07:01] LABS: Bilirubin, Total 0.8 mg/dL (0.2-1.0); Total Protein 6.1 g/dL (5.7-8.2)
[2023-09-22] MEDS: ATORVASTATIN 20 MG TAB PO SCH (09:25)
[2023-09-22] MEDS: METOPROLOL SUCCINATE XL 50 MG TAB PO SCH (09:26)
[2023-09-22] MEDS: amLODIPine BESYLATE 5 MG TAB PO SCH (09:27)
[2023-09-22] MEDS ORDERED: ATORVASTATIN 20 MG TAB PO SCH (10:00)
[2023-09-22] MEDS ORDERED: TAMSULOSIN HYDROCHLORIDE 0.4 MG CAP PO SCH (10:00)
[2023-09-22] MEDS ORDERED: amLODIPine BESYLATE 5 MG TAB PO SCH ×2 (10:00)
[2023-09-22] MEDS ORDERED: METOPROLOL SUCCINATE XL 50 MG TAB PO SCH (10:00)
[2023-09-22] MEDS: ERGOCALCIFEROL 50,000 UNIT(1.25MG) CAP PO SCH (14:43)
[2023-09-22] MEDS: HYDROcodone-ACET 5/325MG TAB PO PRN (14:44)
[2023-09-22] MEDS: LIDOCAINE 5% TOPICAL PATCH TOP ONE (14:44)
[2023-09-23 00:53] VITALS: BP 122/68; PULSE 74; RESP 18; TEMP 98.5; O2SAT 92
[2023-09-23 05:00] VITALS: BP 128/68; PULSE 68; RESP 19; TEMP 97.4; O2SAT 95
[2023-09-23 05:45] LABS: Hematocrit 30.8 % (41.0-53.0); Hemoglobin 10.4 g/dL (13.5-17.5); Mean Corpuscular Hemoglobin 32.2 pg (28.0-32.0); Mean Corpuscular Hgb Conc. 33.7 g/dL (32.0-36.0); Mean Corpuscular Volume 95.6 fL (80.0-100.0); Red Blood Cells 3.23 10^6/uL (4.5-5.90); White Blood Cell 9.1 10^3/uL (4.4-10.8)
[2023-09-23 05:46] LABS: Basophils % (manual) 0 (0.0-2.0); Blast Cells 0; Metamyelocytes % 0; Myelocytes % 0; Promyelocytes % 0; Reactive Lymphocytes 0
[2023-09-23 07:23] LABS: Band Neutrophils % (manual) 3; Eosinophils % (manual) 1 (0-7); Lymphocytes % (manual) 15 (10.0-50.0); Monocytes % (manual) 7 (0-12); Platelet Estimate Adequate
[2023-09-23 09:00] VITALS: BP 134/79; PULSE 80; RESP 17; TEMP 97.4; O2SAT 96
[2023-09-23] MEDS: LIDOCAINE 5% TOPICAL PATCH TOP SCH (10:20)
[2023-09-23 10:56] LABS: Urine Bacteria None Seen /hpf (None Seen)
[2023-09-23 11:16] LABS: Urine Blood Negative /uL (Negative); Urine Clarity Clear (Clear); Urine Color Light-Yellow (Yellow); Urine Protein, UAD Negative (Negative); Urine Specific Gravity 1.009 (1.001-1.035); Urine Urobilinogen Normal (Negative); Urine WBC 4 /hpf (0 - 3); Urine pH 6.5 (5.0-9.0)
[2023-09-23 13:00] VITALS: BP_SYST 107; BP_SYST 117; BP_DIAS 54; BP_DIAS 66; PULSE 69; PULSE 77; RESP 17; TEMP 98.2; O2SAT 96
[2023-09-23] MEDS: HYDROcodone-ACET 10/325MG TAB PO PRN (15:08)
[2023-09-23 17:00] VITALS: BP 117/66; PULSE 74; RESP 17; TEMP 98.1; O2SAT 96
[2023-09-23 20:41] VITALS: BP 105/59; PULSE 82; RESP 19; TEMP 97.7; O2SAT 97
[2023-09-24 00:40] VITALS: BP 107/63; PULSE 59; RESP 18; TEMP 98.8; O2SAT 97
[2023-09-24 05:15] VITALS: BP 128/63; PULSE 75; RESP 17; TEMP 98.1; O2SAT 98
[2023-09-24 08:00] VITALS: PULSE 70; RESP 16; O2SAT 96
[2023-09-24 09:00] VITALS: BP 126/77; PULSE 68; RESP 18; TEMP 97.9; O2SAT 95
[2023-09-24] MEDS ORDERED: CEPH500C PO (10:16)
[2023-09-24 13:00] VITALS: BP 122/64; PULSE 70; RESP 16; TEMP 98; O2SAT 96
[2023-09-24 14:07] VITALS: BP 122/64; PULSE 70; RESP 16; TEMP 98; O2SAT 96
== END 2023-09-24 15:40 | disposition home or self-care (01) | DRG 729 ==
LOC: ER 14:54 → OVERFLOW 17:49 → EAST 23:55
PROVIDERS: ADMIT Internal Medicine Geriatric Medicine; ATTEND Emergency Medicine
DX: N43.3 Hydrocele, unspecified (principal); I48.20 Chronic atrial fibrillation, unspecified; N45.3 Epididymo-orchitis; E11.9 Type 2 diabetes mellitus without complications; D64.9 Anemia, unspecified; E55.9 Vitamin D deficiency, unspecified; I11.0 Hypertensive heart disease with heart failure; I50.9 Heart failure, unspecified; Z79.899 Other long term (current) drug therapy; Z90.49 Acquired absence of other specified parts of digestive tract; Z79.01 Long term (current) use of anticoagulants; Z85.46 Personal history of malignant neoplasm of prostate; Z82.3 Family history of stroke; Z83.3 Family history of diabetes mellitus; M79.652 Pain in left thigh
CPT/HCPCS: 36415; 76870; 80048; 80053; 81001; 82306; 82607; 83605; 83880; 85007; 85025; 85027; 87040; G0378; J2543